=== PATIENT | female | born 1940 | race Caucasian/White ===

== ENCOUNTER 2022-04-11 15:43 | Outpatient (CLI) | payer MEDICARE, BC, SELFPAY | END 2022-04-11 15:44 | disposition home or self-care (01) | LOC: LKVREF 04-20 09:11 | PROVIDERS: Visit Provider Physician Assistant Medical | DX: N39.0 Urinary tract infection, site not specified (principal); M54.50 Low back pain, unspecified | CPT/HCPCS: 87086 ==

== ENCOUNTER 2022-04-24 17:45 | Outpatient (CLI) | payer BC, SELFPAY | END 2022-04-24 17:46 | disposition home or self-care (01) | LOC: LKVREF 17:54 | PROVIDERS: Visit Provider Emergency Medicine | DX: R30.0 Dysuria (principal); N39.0 Urinary tract infection, site not specified; M54.50 Low back pain, unspecified | CPT/HCPCS: 87086 ==